=== PATIENT | male | born 1995 | race Caucasian/White ===

== ENCOUNTER 2020-02-05 10:32 | Emergency (ER) | payer BC, SELFPAY ==
[2020-02-05 10:47] VITALS: BP 149/94; PULSE 89; RESP 18; TEMP 36.2; O2SAT 99
--- NOTE | 2020-02-05 10:47 | ED.URI ---
HPI - URI/Sore Throat General Chief Complaint: Upper Respiratory Infection Stated Complaint: sore throat/swollen Time Seen by Provider: 02/05/20 10:47 Source: patient History of Present Illness HPI Narrative: Patient presents with a sore throat and ear pain for the last 2 weeks. Patient states he had a negative COVID-19 test last month patient reports at that time he had no symptoms they were just offering testing in his town and he decided to be tested for COVID-19. Patient denies any cough no runny nose. Patient does states he feels little more tired than usual but has not been around anybody with mono. Patient states it hurts to swallow but has no trouble swallowing and no drooling. Patient is not taking thing [id number] for his symptoms MD elicited complaint: sore throat Related Data Allergies Allergy/AdvReac Type Severity Reaction Status Date / Time No Known Allergies Allergy Verified 02/05/20 10:50 Review of Systems Review of Systems: Narrative: CONSTITUTIONAL: Denies fever, chills, or sweats. EYES: Denies visual changes, redness, or discharge. ENT: Denies rhinorrhea, congestion,. Ends of sore throat and ear pain CARDIOVASCULAR: Denies chest pain, palpitations, or edema. RESPIRATORY: Denies cough or dyspnea. GASTROINTESTINAL: Denies abdominal pain, nausea, vomiting, or diarrhea. GENITOURINARY: Denies dysuria or hematuria. SKIN: Denies rash or itching. MUSCULOSKELETAL: Denies back pain, joint pain, or myalgia. NEUROLOGIC: Denies headache, numbness, or weakness. PSYCHIATRIC: Denies anxiety or depression. PMFSH Social History Social History Gender identity (if verbalized by the patient): Male Comments At time of signature, agree with nursing past medical, surgical, social and family history. There is no relevant family history pertinent to the presenting complaint Exam Narrative: Exam Narrative: GENERAL: Well-appearing, well-nourished, and in no acute distress. HEAD: Normocephalic, atraumatic. EYES: PERRLA and EOMI. ENT: Nares clear, no rhinorrhea or epistaxis. Mucous membranes moist. No trismus no drooling may open mouth fully mild pharyngeal erythremia right TM opaque with moderate erythremia to canal left TM mild dullness NECK: Supple. CHEST: Clear to auscultation. No respiratory distress. HEART: Regular rate and rhythm. No murmur heard. Normal peripheral pulses. ABDOMEN: Soft, nontender, nondistended, normal active bowel sounds. EXTREMITIES: Normal range of motion. No edema. SKIN: Warm, dry, no rash. NEURO: No focal deficits. Alert and oriented x3. Ridgeley Coma Scale Eye Opening: Spontaneous 4 Gertrude Coma Scale Motor: Obeys Commands 6 [place] Coma Scale Verbal: Oriented 5 Gertrude Coma Scale Total 15 Course Vital Signs Vital signs: Vital Signs Temperature 36.2 C L 02/05/20 10:47 Pulse Rate 89 02/05/20 10:47 Respiratory Rate 18 02/05/20 10:47 Blood Pressure 149/94 H 02/05/20 10:47 Pulse Oximetry 99 02/05/20 10:47 Temperature 36.2 C L 02/05/20 10:47 Pulse Rate 89 02/05/20 10:47 Respiratory Rate 18 02/05/20 10:47 Blood Pressure 149/94 H 02/05/20 10:47 Pulse Oximetry 99 02/05/20 10:47 Please AUBREE schedule a followup visit with your personal physician for further evaluation and treatment. Including recheck and discussion of your blood pressure. If your symptoms persist, change or worsen significantly before you can contact your personal physician then please, without delay, go to the emergency department for further evaluation discussed mono symptoms and side effects in length with patient. discussed red flags and when to go to the er. Encouraged patient to follow up with PCP in 1-2 days for re evaluation with Primary care Provider. MDM - URI/Sore Throat Differential Diagnosis Differential diagnosis: Likely upper respiratory infection, croup, otitis media, sinusitis, viral infection, bronchitis, influenza and pharyngitis Lab Data Labs: Strep Screen
== END 2020-02-05 11:19 | disposition home or self-care (01) ==
PROVIDERS: Emergency Provider Nurse Practitioner Family
DX: J02.9 Acute pharyngitis, unspecified (principal); H66.91 Otitis media, unspecified, right ear; B27.90 Infectious mononucleosis, unspecified without complication
CPT/HCPCS: 36416; 86308; 87081; 87880; 99203; G0463